=== PATIENT | female | born 1965 | race Caucasian/White ===

== ENCOUNTER 2023-02-26 00:47 | Emergency (ER) | payer OTHER, MEDICAID ==
[~2023-02-26] VITALS: Ht 162.6 cm; Wt 136.1 kg
[2023-02-26 00:52] VITALS: BP_SYST 137
--- NOTE | 2023-02-26 01:31 | NUR ---
Patient to ER bed 02 to gown for evaluation. Side rails up. Report given to HALLE BENAVIDEZ.
--- NOTE | 2023-02-26 01:34 | NUR ---
PT TOOK NORCO AT 2300 ON 02/25. EMS GAVE 4MG OF MORPHINE IM @ 0025.
--- NOTE | 2023-02-26 02:05 | NUR ---
DR WICK AT BEDSIDE EXAMINING PATIENT AWAITING FOR DISPOSITION VSS.
[2023-02-26] MEDS ORDERED: NORMAL SALINE 5 ML DISP.SYRIN IVF SCH (02:15)
[2023-02-26] MEDS ORDERED: PROCHLORPERAZINE EDISYLATE 10 MG/2 ML VIAL IVP ONE (02:15)
[2023-02-26] MEDS ORDERED: fentaNYL CITRATE/PF 100 MCG/2 ML AMP IVP ONE (02:15)
[2023-02-26] MEDS ORDERED: AUG875 PO (05:01)
[2023-02-26] MEDS ORDERED: ACET1TAB93 PO (05:03)
--- NOTE | 2023-02-26 05:30 | NUR ---
LT FOOT AIR SPLINT APPLIED
[2023-02-26 05:51] VITALS: BP_SYST 126
--- NOTE | 2023-02-26 05:55 | NUR ---
Patient given written and verbal discharge instructions and verbalizes understanding. SHERRON NO MD discussed with patient the results and treatment provided. Patient in stable condition. ID arm band removed. IV catheter removed intact and dressing applied, no active bleeding. Rx of given. Patient educated on pain management and to follow up with PMD. Pain Scale 0 . Opportunity for questions provided and answered. Medication side effect fact sheet provided.
[2023-02-26] MEDS ORDERED: DULO60CA42 PO (22:16)
[2023-02-26] MEDS ORDERED: CLOP75TA32 PO (22:16)
[2023-02-26] MEDS ORDERED: CARV6.2554 PO (22:16)
[2023-02-26] MEDS ORDERED: DAPA10TA PO (22:16)
[2023-02-26] MEDS ORDERED: ASPI-1077 PO (22:16)
[2023-02-26] MEDS ORDERED: BACL20TA PO (22:16)
[2023-02-26] MEDS ORDERED: PREG75CA PO (22:16)
[2023-02-26] MEDS ORDERED: METO2.5T6 PO (22:16)
[2023-02-26] MEDS ORDERED: POTA-197 PO (22:16)
[2023-02-26] MEDS ORDERED: APIX2.5T PO (22:16)
[2023-02-26] MEDS ORDERED: FURO-149 PO (22:16)
[2023-02-26] MEDS ORDERED: CILO100T3 PO (22:16)
[2023-02-26] MEDS ORDERED: ALPR0.25 PO (22:16)
== END 2023-02-26 05:55 | disposition home or self-care (01) ==
LOC: SED 00:47
DX: S93.402A Sprain of unspecified ligament of left ankle, initial encounter (principal); L03.116 Cellulitis of left lower limb; E11.9 Type 2 diabetes mellitus without complications; I10 Essential (primary) hypertension; Z79.899 Other long term (current) drug therapy; W05.0XXA Fall from non-moving wheelchair, initial encounter; Y93.89 Activity, other specified; Y92.89 Other specified places as the place of occurrence of the external cause; Y99.8 Other external cause status
CPT/HCPCS: 99284; 96374; 96375; 73600; 73630; J0780; J3010

== ENCOUNTER 2023-02-26 17:45 | Inpatient (IN) | payer OTHER, MEDICAID ==
[~2023-02-26] VITALS: Ht 165.1 cm; Wt 118.4 kg
[~2023-02-26 17:45] MED LIST: ACET1TAB93 PO; AUG875 PO
[2023-02-26 17:50] VITALS: BP_SYST 86
[2023-02-26] MEDS ORDERED: NACL 0.9% 2,000 ML IV ONE (18:45)
[2023-02-26 19:39] LABS: HEMOGLOBIN 10.7 g/dL (12.0-16.0); MEAN CORPUSCULAR HEMOGLOBIN 25 pg (27-31); RED BLOOD CELL COUNT(AUTO) 4.38 MIL/uL (4.2-6.2)
[2023-02-26 19:45] LABS: HEMATOCRIT 33.8 % (36-48); MEAN CORPUSCULAR HGB CONC 32 % (32-36); MEAN CORPUSCULAR VOLUME 77 fL (79.0-98.0); PLATELET COUNT (AUTO) 295 K/uL (130-430); RED CELL DISTRIBUTION WIDTH 21.2 % (9.0-15.0)
[2023-02-26 19:49] LABS: WHITE BLOOD COUNT (AUTO) 21.3 K/uL (4.8-10.8)
[2023-02-26 19:58] LABS: BAND % (MANUAL) 8 % (0-6); LYMPHOCYTES % (MANUAL) 1 % (20-46); MONOCYTES % (MANUAL) 1 % (0-11)
[2023-02-26 20:10] LABS: ALANINE AMINOTRANSFERASE 17 U/L (12-78); ALBUMIN 2.9 g/dL (3.4-4.8); ANION GAP 13 (5-15); ASPARTATE AMINOTRANSFERASE 47 U/L (10-37); CALCIUM 8.2 mg/dL (8.4-11.0); CHLORIDE 95 mmol/L (98-107); CREATININE 1.94 mg/dL (0.55-1.30); GFR AFRICAN AMERICAN 34 mL/min (>90); TOTAL BILIRUBIN 0.7 mg/dL (0.0-1.0); UREA NITROGEN, BLOOD 42 mg/dL (8-21)
[2023-02-26 20:13] LABS: GLUCOSE 433 mg/dL (70-99)
[2023-02-26] MEDS ORDERED: ENOXAPARIN SODIUM 120 MG/0.8 ML SYRINGE SUBCUT ONE (20:30)
[2023-02-26] MEDS ORDERED: ASPIRIN 300 MG/SUPP.RECT SUPP RC ONE ×2 (20:30→20:47)
[2023-02-26] MEDS ORDERED: ONDANSETRON HCL 4 MG/2 ML VIAL IVP ONE (20:45)
[2023-02-26] MEDS ORDERED: NALOXONE HCL 2 MG/2 ML SYR IVP ONE (20:45)
[2023-02-26] MEDS ORDERED: PIPERACILLIN/TAZOBACTAM 3.375 GM/VIAL (ZOSYN) IV ONE (21:11)
[2023-02-26] MEDS ORDERED: PIPERACILLIN/TAZO 3.375 GM in NS 50 ML IV ONE (21:15)
[2023-02-26] MEDS ORDERED: CILO100T3 PO (22:16)
[2023-02-26] MEDS ORDERED: PREG75CA PO (22:16)
[2023-02-26] MEDS ORDERED: ASPI-1077 PO (22:16)
[2023-02-26] MEDS ORDERED: METO2.5T6 PO (22:16)
[2023-02-26] MEDS ORDERED: CARV6.2554 PO (22:16)
[2023-02-26] MEDS ORDERED: ALPR0.25 PO (22:16)
[2023-02-26] MEDS ORDERED: POTA-197 PO (22:16)
[2023-02-26] MEDS ORDERED: APIX2.5T PO (22:16)
[2023-02-26] MEDS ORDERED: DULO60CA42 PO (22:16)
[2023-02-26] MEDS ORDERED: BACL20TA PO (22:16)
[2023-02-26] MEDS ORDERED: FURO-149 PO (22:16)
[2023-02-26] MEDS ORDERED: DAPA10TA PO (22:16)
[2023-02-26] MEDS ORDERED: CLOP75TA32 PO (22:16)
[2023-02-26 23:00] VITALS: BP_SYST 104; BP_SYST 98
[2023-02-26] MEDS ORDERED: ACETAMINOPHEN/CODEINE 300 MG-30 MG TABLET PO PRN (23:45)
[2023-02-26] MEDS ORDERED: BACLOFEN 10 MG TABLET PO PRN (23:45)
[2023-02-26] MEDS ORDERED: NALOXONE HCL 0.4 MG/ML AMP (NARCAN) IVP PRN (23:45)
[2023-02-27] VITALS (14 sets, daily range): BP systolic 97–122
[2023-02-27] MEDS ORDERED: PIPERACILLIN/TAZO 3.375/DEX-IS 50 ML IV SCH ×2 (05:00→06:45)
[2023-02-27] MEDS ORDERED: *HEPARIN PER PHARMACY XX PRN (05:15)
[2023-02-27] MEDS ORDERED: COMMUNICATION ORDER XX ONE (05:15)
[2023-02-27] MEDS ORDERED: HEPARIN SODIUM,PORCINE 3000 UNITS/0.6 ML BOLUS IVP PRN (05:30)
[2023-02-27] MEDS ORDERED: NACL 0.9% 1,000 ML IV SCH (05:30)
[2023-02-27 05:53] LABS: BASOPHILS % (AUTO) 0.2 % (0.0-2.0); HEMATOCRIT 33.8 % (36-48); HEMOGLOBIN 10.6 g/dL (12.0-16.0); LYMPHOCYTES # (AUTO) 1.1 K/uL (1.0-5.5); LYMPHOCYTES % (AUTO) 5.8 % (20.5-51.5); MEAN CORPUSCULAR HEMOGLOBIN 25 pg (27-31); MEAN CORPUSCULAR HGB CONC 31 % (32-36); MEAN CORPUSCULAR VOLUME 78 fL (79.0-98.0); MONOCYTES # (AUTO) 0.6 K/uL (0.0-1.0); NEUTROPHILS # (AUTO) 17.1 K/uL (1.8-7.7); PLATELET COUNT (AUTO) 291 K/uL (130-430); RED BLOOD CELL COUNT(AUTO) 4.32 MIL/uL (4.2-6.2); RED CELL DISTRIBUTION WIDTH 21.4 % (9.0-15.0); WHITE BLOOD COUNT (AUTO) 18.8 K/uL (4.8-10.8)
[2023-02-27 06:07] LABS: ANION GAP 14 (5-15); CALCIUM 8.2 mg/dL (8.4-11.0); CHLORIDE 99 mmol/L (98-107); CREATININE 1.69 mg/dL (0.55-1.30); GFR AFRICAN AMERICAN 40 mL/min (>90); UREA NITROGEN, BLOOD 41 mg/dL (8-21)
[2023-02-27 06:08] LABS: THYROID STIMULATING HORMONE 0.68 uIu/mL (0.34-4.82)
[2023-02-27 07:12] LABS: GLUCOSE 410 mg/dL (70-99)
[2023-02-27] MEDS: CLOPIDOGREL BISULFATE 75 MG TABLET PO SCH (08:30)
[2023-02-27] MEDS: FUROSEMIDE 40 MG TABLET PO SCH ×2 (08:31→21:20)
[2023-02-27] MEDS: CARVEDILOL 6.25 MG TABLET (COREG) PO SCH ×2 (08:31→21:16)
[2023-02-27] MEDS: DULoxetine HCL 30 MG CAPSULE.DR (CYMBALTA) PO SCH ×2 (08:32→21:20)
[2023-02-27] MEDS: PREGABALIN 75 MG CAPSULE (LYRICA) PO SCH ×2 (08:32→21:20)
[2023-02-27] MEDS: POTASSIUM CHLORIDE 20 MEQ TAB.PRT.SR PO SCH ×2 (08:32→21:15)
[2023-02-27] MEDS: ASPIRIN 81 MG TAB.CHEW PO SCH (08:32)
[2023-02-27] MEDS ORDERED: ALPRAZolam 0.25 MG TABLET PO SCH (09:00)
[2023-02-27] MEDS ORDERED: NON-FORMULARY MEDICATION (Dapagliflozin Propanediol (Farxiga) 10 MG) PO SCH (09:00)
[2023-02-27] MEDS ORDERED: HEPARIN SODIUM,PORCINE 5,000 UNITS/ML VIAL IV ONE (09:30)
[2023-02-27] MEDS: HEPARIN 25,000 UNITS in 250 ML PREMIX IV PRN (10:30)
[2023-02-27] MEDS ORDERED: AMIODARONE HCL 150 MG in D5W 100 ML IV ONE (11:00)
[2023-02-27] MEDS: AMIODARONE HCL 450 MG in D5W 241 ML IV SCH ×2 (11:10→21:40)
[2023-02-27] MEDS: PIPERACILLIN/TAZO 3.375/DEX-IS 50 ML IV SCH ×2 (11:27→17:32)
[2023-02-27] MEDS ORDERED: OMEPRAZOLE Non-Formulary 20 MG CAPSULE.DR PO SCH (12:00)
[2023-02-27] MEDS: INSULIN REGULAR, HUMAN 100 UNITS/ML, 3 ML VIAL (humuLIN R) SUBCUT PRN ×2 (12:04→17:48)
[2023-02-27] MEDS ORDERED: PANTOPRAZOLE SODIUM 40 MG TAB PO ONE (12:30)
[2023-02-27] MEDS ORDERED: ALPRAZolam 0.25 MG TABLET PO ONE (13:00)
[2023-02-27] MEDS ORDERED: ONDANSETRON HCL 4 MG/2 ML VIAL IVP PRN (13:15)
[2023-02-27] MEDS ORDERED: ALTEPLASE 2 MG VIAL MC ONE (16:30)
[2023-02-27] MEDS ORDERED: INSULIN NPH 100 UNITS/ML 10 ML VIAL SUBCUT ONE (18:30)
[2023-02-27 18:42] LABS: BILIRUBIN,URINE NEGATIVE (NEGATIVE); BLOOD, URINE 3+ (NEGATIVE); COLOR,URINE YELLOW (YELLOW); GLUCOSE,URINE 3+ (NEGATIVE); KETONES,URINE NEGATIVE (NEGATIVE); LEUKOCYTE ESTERASE ,URINE NEGATIVE (NEGATIVE); NITRITE, URINE NEGATIVE (NEGATIVE); PROTEIN URINE 2+ (NEGATIVE)
[2023-02-27 18:49] LABS: CLARITY/URINE HAZY (CLEAR)
[2023-02-27 18:58] LABS: BACTERIA,URINE FEW /HPF (None Seen); RBC,URINE 20-50 /HPF (0-3); WBC,URINE 0-3 /HPF (0-3)
[2023-02-27] MEDS ORDERED: CILOSTAZOL 50 MG TABLET (PLETAL) PO SCH (21:00)
[2023-02-27] MEDS ORDERED: INSULIN Lispro 100 UNITS/ML, 3 ML VIAL (humaLOG) SUBCUT ONE (21:00)
[2023-02-27] MEDS: ALPRAZolam 0.25 MG TABLET PO SCH (21:16)
[2023-02-27] MEDS: INSULIN GLARGINE 100 UNITS/ML, 10 ML VIAL SUBCUT SCH (21:30)
[2023-02-28] VITALS (25 sets, daily range): BP systolic 64–149
[2023-02-28] MEDS: HEPARIN SODIUM,PORCINE 2000 UNITS/0.4 ML BOLUS IVP PRN ×2 (00:08→17:37)
[2023-02-28] MEDS: PIPERACILLIN/TAZO 3.375/DEX-IS 50 ML IV SCH ×7 (00:15→23:04)
[2023-02-28] MEDS: INSULIN LISPRO SLIDING SCALE 100 UNITS/ML, 3 ML VIAL (humaLOG) SUBCUT PRN ×6 (00:44→23:50)
[2023-02-28] MEDS: DULoxetine HCL 30 MG CAPSULE.DR (CYMBALTA) PO SCH ×2 (08:42→20:41)
[2023-02-28] MEDS: FUROSEMIDE 40 MG TABLET PO SCH ×2 (08:43→20:42)
[2023-02-28] MEDS: metOLazone 2.5 MG TABLET PO SCH ×2 (08:43→09:00)
[2023-02-28] MEDS: PREGABALIN 75 MG CAPSULE (LYRICA) PO SCH ×2 (08:44→20:42)
[2023-02-28] MEDS: ALPRAZolam 0.25 MG TABLET PO SCH ×2 (08:44→20:42)
[2023-02-28] MEDS: PANTOPRAZOLE SODIUM 40 MG TAB PO SCH (08:44)
[2023-02-28] MEDS: ASPIRIN 81 MG TAB.CHEW PO SCH (08:45)
[2023-02-28] MEDS: CARVEDILOL 6.25 MG TABLET (COREG) PO SCH ×2 (08:45→20:41)
[2023-02-28] MEDS: POTASSIUM CHLORIDE 20 MEQ TAB.PRT.SR PO SCH ×2 (08:45→20:41)
[2023-02-28] MEDS: CLOPIDOGREL BISULFATE 75 MG TABLET PO SCH (08:45)
[2023-02-28] MEDS ORDERED: EMPAGLIFLOZIN 10 MG TABLET PO SCH (09:00)
[2023-02-28] MEDS: HEPARIN 25,000 UNITS in 250 ML PREMIX IV PRN ×3 (09:21→22:38)
[2023-02-28] MEDS: INSULIN GLARGINE 100 UNITS/ML, 10 ML VIAL SUBCUT SCH ×2 (10:29→20:42)
[2023-02-28 10:45] LABS: ALBUMIN 2.7 g/dL (3.4-4.8); BASOPHILS # (AUTO) 0.1 K/uL (0.0-0.2); BASOPHILS % (AUTO) 0.6 % (0.0-2.0); CALCIUM 7.8 mg/dL (8.4-11.0); CREATININE 2.39 mg/dL (0.55-1.30); EOSINOPHILS # (AUTO) 0.1 K/uL (0.0-0.4); EOSINOPHILS % (AUTO) 0.7 % (0.0-4.0); HEMATOCRIT 33.8 % (36-48); HEMOGLOBIN 10.4 g/dL (12.0-16.0); LYMPHOCYTES # (AUTO) 2.1 K/uL (1.0-5.5); LYMPHOCYTES % (AUTO) 21.5 % (20.5-51.5); MEAN CORPUSCULAR HEMOGLOBIN 25 pg (27-31); MEAN CORPUSCULAR HGB CONC 31 % (32-36); MEAN CORPUSCULAR VOLUME 80 fL (79.0-98.0); MONOCYTES # (AUTO) 0.7 K/uL (0.0-1.0); MONOCYTES % (AUTO) 7.5 % (1.7-9.3); NEUTROPHILS # (AUTO) 6.9 K/uL (1.8-7.7); NEUTROPHILS % (AUTO) 69.7 % (40.0-70.0); PLATELET COUNT (AUTO) 262 K/uL (130-430); RED BLOOD CELL COUNT(AUTO) 4.24 MIL/uL (4.2-6.2); TOTAL BILIRUBIN 0.5 mg/dL (0.0-1.0); WHITE BLOOD COUNT (AUTO) 9.9 K/uL (4.8-10.8)
[2023-02-28] MEDS ORDERED: NOREPINEPHRINE BITARTRATE 4 MG in NS 246 ML IV PRN (11:00)
[2023-02-28] MEDS ORDERED: AMIODARONE HCL 200 MG TABLET PO ONE (11:30)
[2023-02-28] MEDS ORDERED: BUMEX 1 MG/4 ML VIAL IVP ONE (20:30)
[2023-02-28] MEDS: AMIODARONE HCL 200 MG TABLET PO SCH (20:41)
[2023-03-01] VITALS (16 sets, daily range): BP systolic 98–145
[2023-03-01 00:11] LABS: ALBUMIN 2.7 g/dL (3.4-4.8); CALCIUM 7.4 mg/dL (8.4-11.0); CREATININE 2.72 mg/dL (0.55-1.30); TOTAL BILIRUBIN 0.7 mg/dL (0.0-1.0)
[2023-03-01] MEDS: INSULIN LISPRO SLIDING SCALE 100 UNITS/ML, 3 ML VIAL (humaLOG) SUBCUT PRN ×5 (04:24→21:43)
[2023-03-01] MEDS: PIPERACILLIN/TAZO 3.375/DEX-IS 50 ML IV SCH ×3 (05:58→17:41)
[2023-03-01 07:37] LABS: BASOPHILS # (AUTO) 0.1 K/uL (0.0-0.2); BASOPHILS % (AUTO) 0.7 % (0.0-2.0); EOSINOPHILS # (AUTO) 0.1 K/uL (0.0-0.4); EOSINOPHILS % (AUTO) 1.4 % (0.0-4.0); HEMATOCRIT 32.4 % (36-48); HEMOGLOBIN 10.3 g/dL (12.0-16.0); LYMPHOCYTES # (AUTO) 1.4 K/uL (1.0-5.5); LYMPHOCYTES % (AUTO) 14.6 % (20.5-51.5); MEAN CORPUSCULAR HEMOGLOBIN 25 pg (27-31); MEAN CORPUSCULAR HGB CONC 32 % (32-36); MEAN CORPUSCULAR VOLUME 79 fL (79.0-98.0); MONOCYTES # (AUTO) 0.6 K/uL (0.0-1.0); MONOCYTES % (AUTO) 6.2 % (1.7-9.3); NEUTROPHILS # (AUTO) 7.2 K/uL (1.8-7.7); NEUTROPHILS % (AUTO) 77.1 % (40.0-70.0); PLATELET COUNT (AUTO) 246 K/uL (130-430); RED BLOOD CELL COUNT(AUTO) 4.08 MIL/uL (4.2-6.2); RED CELL DISTRIBUTION WIDTH 21.4 % (9.0-15.0); WHITE BLOOD COUNT (AUTO) 9.3 K/uL (4.8-10.8)
[2023-03-01 07:56] LABS: CALCIUM 7.7 mg/dL (8.4-11.0); CREATININE 2.51 mg/dL (0.55-1.30); PHOSPHORUS 3.8 mg/dL (2.7-4.5)
[2023-03-01] MEDS: INSULIN GLARGINE 100 UNITS/ML, 10 ML VIAL SUBCUT SCH ×2 (08:00→21:43)
[2023-03-01 08:03] LABS: ERYTHROCYTE SEDIMENTATION RATE > 130 MM/HR (0-20)
[2023-03-01] MEDS: ALPRAZolam 0.25 MG TABLET PO SCH ×2 (08:56→21:35)
[2023-03-01] MEDS: PANTOPRAZOLE SODIUM 40 MG TAB PO SCH (08:56)
[2023-03-01] MEDS: AMIODARONE HCL 200 MG TABLET PO SCH ×2 (08:56→21:34)
[2023-03-01] MEDS: CARVEDILOL 6.25 MG TABLET (COREG) PO SCH ×2 (08:57→21:35)
[2023-03-01] MEDS: FUROSEMIDE 40 MG TABLET PO SCH ×2 (08:57→21:36)
[2023-03-01] MEDS: PREGABALIN 75 MG CAPSULE (LYRICA) PO SCH ×2 (08:57→21:35)
[2023-03-01] MEDS: DULoxetine HCL 30 MG CAPSULE.DR (CYMBALTA) PO SCH ×2 (08:58→21:36)
[2023-03-01] MEDS: ASPIRIN 81 MG TAB.CHEW PO SCH (08:58)
[2023-03-01] MEDS: CLOPIDOGREL BISULFATE 75 MG TABLET PO SCH (08:58)
[2023-03-01] MEDS: POTASSIUM CHLORIDE 20 MEQ TAB.PRT.SR PO SCH ×3 (09:00→21:35)
[2023-03-01] MEDS: HEPARIN 25,000 UNITS in 250 ML PREMIX IV PRN (12:16)
[2023-03-02 00:11] VITALS: BP_SYST 114
[2023-03-02] MEDS: PIPERACILLIN/TAZO 3.375/DEX-IS 50 ML IV SCH ×5 (05:42→23:43)
[2023-03-02] MEDS: INSULIN LISPRO SLIDING SCALE 100 UNITS/ML, 3 ML VIAL (humaLOG) SUBCUT PRN ×4 (06:21→20:38)
[2023-03-02] MEDS: INSULIN Lispro 100 UNITS/ML, 3 ML VIAL (humaLOG) SUBCUT SCH ×3 (06:21→17:02)
[2023-03-02 07:10] LABS: BASOPHILS # (AUTO) 0.1 K/uL (0.0-0.2); BASOPHILS % (AUTO) 0.6 % (0.0-2.0); EOSINOPHILS # (AUTO) 0.2 K/uL (0.0-0.4); EOSINOPHILS % (AUTO) 1.9 % (0.0-4.0); HEMATOCRIT 31.8 % (36-48); HEMOGLOBIN 9.9 g/dL (12.0-16.0); LYMPHOCYTES # (AUTO) 1.3 K/uL (1.0-5.5); LYMPHOCYTES % (AUTO) 13.7 % (20.5-51.5); MEAN CORPUSCULAR HEMOGLOBIN 25 pg (27-31); MEAN CORPUSCULAR HGB CONC 31 % (32-36); MEAN CORPUSCULAR VOLUME 80 fL (79.0-98.0); MONOCYTES # (AUTO) 0.8 K/uL (0.0-1.0); MONOCYTES % (AUTO) 8.5 % (1.7-9.3); NEUTROPHILS % (AUTO) 75.3 % (40.0-70.0); PLATELET COUNT (AUTO) 222 K/uL (130-430); RED CELL DISTRIBUTION WIDTH 21.5 % (9.0-15.0); WHITE BLOOD COUNT (AUTO) 9.3 K/uL (4.8-10.8)
[2023-03-02 07:40] LABS: C-REACTIVE PROTEIN QUANT 10.6 mg/dL (0-0.5); CALCIUM 7.6 mg/dL (8.4-11.0); CREATININE 1.9 mg/dL (0.55-1.30); PHOSPHORUS 3.4 mg/dL (2.7-4.5)
[2023-03-02 08:00] VITALS: BP_SYST 126
[2023-03-02 08:08] LABS: ERYTHROCYTE SEDIMENTATION RATE 115 MM/HR (0-20)
[2023-03-02] MEDS: PREGABALIN 75 MG CAPSULE (LYRICA) PO SCH ×2 (08:50→20:34)
[2023-03-02] MEDS: PANTOPRAZOLE SODIUM 40 MG TAB PO SCH (08:50)
[2023-03-02] MEDS: ASPIRIN 81 MG TAB.CHEW PO SCH (08:50)
[2023-03-02] MEDS: FUROSEMIDE 40 MG TABLET PO SCH ×2 (08:50→20:34)
[2023-03-02] MEDS: DULoxetine HCL 30 MG CAPSULE.DR (CYMBALTA) PO SCH ×2 (08:50→20:32)
[2023-03-02] MEDS: metOLazone 2.5 MG TABLET PO SCH (08:51)
[2023-03-02] MEDS: CLOPIDOGREL BISULFATE 75 MG TABLET PO SCH (08:51)
[2023-03-02] MEDS: POTASSIUM CHLORIDE 20 MEQ TAB.PRT.SR PO SCH ×2 (08:51→20:32)
[2023-03-02] MEDS: AMIODARONE HCL 200 MG TABLET PO SCH ×2 (08:52→20:33)
[2023-03-02] MEDS: CARVEDILOL 6.25 MG TABLET (COREG) PO SCH ×2 (08:52→20:34)
[2023-03-02] MEDS: ALPRAZolam 0.25 MG TABLET PO SCH ×2 (08:53→20:32)
[2023-03-02 09:12] LABS: INR 1.1 (0.8-1.2); PROTHROMBIN TIME 10.9 SECS (9.5-12.5)
[2023-03-02] MEDS: INSULIN GLARGINE 100 UNITS/ML, 10 ML VIAL SUBCUT SCH ×2 (10:33→20:37)
[2023-03-02 11:25] VITALS: BP_SYST 120
[2023-03-02 15:25] VITALS: BP_SYST 117
[2023-03-02 20:00] VITALS: BP_SYST 126
[2023-03-03 01:16] VITALS: BP_SYST 132
[2023-03-03] MEDS: PIPERACILLIN/TAZO 3.375/DEX-IS 50 ML IV SCH (05:01)
[2023-03-03 05:24] LABS: BASOPHILS % (AUTO) 0.3 % (0.0-2.0); EOSINOPHILS # (AUTO) 0.2 K/uL (0.0-0.4); EOSINOPHILS % (AUTO) 1.7 % (0.0-4.0); HEMATOCRIT 31.3 % (36-48); HEMOGLOBIN 9.8 g/dL (12.0-16.0); LYMPHOCYTES # (AUTO) 1.8 K/uL (1.0-5.5); LYMPHOCYTES % (AUTO) 15.8 % (20.5-51.5); MEAN CORPUSCULAR HEMOGLOBIN 25 pg (27-31); MEAN CORPUSCULAR HGB CONC 31 % (32-36); MEAN CORPUSCULAR VOLUME 79 fL (79.0-98.0); MONOCYTES # (AUTO) 1.1 K/uL (0.0-1.0); MONOCYTES % (AUTO) 9.9 % (1.7-9.3); NEUTROPHILS # (AUTO) 8.2 K/uL (1.8-7.7); NEUTROPHILS % (AUTO) 72.3 % (40.0-70.0); PLATELET COUNT (AUTO) 233 K/uL (130-430); RED BLOOD CELL COUNT(AUTO) 3.97 MIL/uL (4.2-6.2); RED CELL DISTRIBUTION WIDTH 21.6 % (9.0-15.0); WHITE BLOOD COUNT (AUTO) 11.3 K/uL (4.8-10.8)
[2023-03-03 05:49] LABS: C-REACTIVE PROTEIN QUANT 8.1 mg/dL (0-0.5); CREATININE 1.56 mg/dL (0.55-1.30); PHOSPHORUS 2.8 mg/dL (2.7-4.5)
[2023-03-03] MEDS: INSULIN Lispro 100 UNITS/ML, 3 ML VIAL (humaLOG) SUBCUT SCH ×3 (06:30→17:00)
[2023-03-03 08:00] VITALS: BP_SYST 120
[2023-03-03 08:07] LABS: ERYTHROCYTE SEDIMENTATION RATE > 130 MM/HR (0-20)
[2023-03-03] MEDS: ASPIRIN 81 MG TAB.CHEW PO SCH (08:44)
[2023-03-03] MEDS: DULoxetine HCL 30 MG CAPSULE.DR (CYMBALTA) PO SCH ×2 (08:45→21:21)
[2023-03-03] MEDS: AMIODARONE HCL 200 MG TABLET PO SCH ×2 (08:46→21:19)
[2023-03-03] MEDS: CLOPIDOGREL BISULFATE 75 MG TABLET PO SCH (08:46)
[2023-03-03] MEDS: PANTOPRAZOLE SODIUM 40 MG TAB PO SCH (08:47)
[2023-03-03] MEDS: FUROSEMIDE 40 MG TABLET PO SCH ×2 (08:48→21:22)
[2023-03-03] MEDS: PREGABALIN 75 MG CAPSULE (LYRICA) PO SCH ×2 (08:49→21:22)
[2023-03-03] MEDS: POTASSIUM CHLORIDE 20 MEQ TAB.PRT.SR PO SCH ×2 (08:49→21:21)
[2023-03-03] MEDS: CARVEDILOL 6.25 MG TABLET (COREG) PO SCH ×2 (08:49→21:21)
[2023-03-03] MEDS: ALPRAZolam 0.25 MG TABLET PO SCH ×2 (08:50→21:22)
[2023-03-03] MEDS: INSULIN GLARGINE 100 UNITS/ML, 10 ML VIAL SUBCUT SCH ×2 (08:52→21:23)
[2023-03-03] MEDS ORDERED: OXYCODONE/ACETAMINOPHEN 5-325 TABLET PO PRN (10:00)
[2023-03-03] MEDS ORDERED: NALOXONE HCL 0.4 MG/ML AMP (NARCAN) IVP PRN (10:00)
[2023-03-03] MEDS ORDERED: ACETAMINOPHEN 325 MG TABLET PO PRN (10:00)
[2023-03-03] MEDS: HYDROcodone/ACETAMIN 5-325 MG TAB (NORCO/ VICODIN) PO PRN ×2 (10:36→21:34)
[2023-03-03] MEDS: CEFEPIME 2 GM in D5W 100 ML IV SCH (11:21)
[2023-03-03 11:32] VITALS: BP_SYST 127
[2023-03-03] MEDS: INSULIN LISPRO SLIDING SCALE 100 UNITS/ML, 3 ML VIAL (humaLOG) SUBCUT PRN (12:16)
[2023-03-03] MEDS: FLUCONAZOLE 100 mg/ NS 50 ML IV SCH (12:29)
[2023-03-03 15:37] VITALS: BP_SYST 102
[2023-03-03] MEDS ORDERED: BALSAM PERU/CASTOR OIL 56.7 GM OINT...G. TP ONE (17:00)
[2023-03-03 20:00] VITALS: BP_SYST 157
[2023-03-04 00:46] VITALS: BP_SYST 108
[2023-03-04 05:48] LABS: BASOPHILS % (AUTO) 0.4 % (0.0-2.0); EOSINOPHILS # (AUTO) 0.2 K/uL (0.0-0.4); EOSINOPHILS % (AUTO) 1.5 % (0.0-4.0); HEMOGLOBIN 9.8 g/dL (12.0-16.0); LYMPHOCYTES # (AUTO) 1.6 K/uL (1.0-5.5); LYMPHOCYTES % (AUTO) 14.7 % (20.5-51.5); MEAN CORPUSCULAR HEMOGLOBIN 25 pg (27-31); MEAN CORPUSCULAR HGB CONC 32 % (32-36); MEAN CORPUSCULAR VOLUME 79 fL (79.0-98.0); MONOCYTES # (AUTO) 1.2 K/uL (0.0-1.0); MONOCYTES % (AUTO) 11.3 % (1.7-9.3); NEUTROPHILS # (AUTO) 7.9 K/uL (1.8-7.7); NEUTROPHILS % (AUTO) 72.1 % (40.0-70.0); PLATELET COUNT (AUTO) 267 K/uL (130-430); RED BLOOD CELL COUNT(AUTO) 3.91 MIL/uL (4.2-6.2); RED CELL DISTRIBUTION WIDTH 22.9 % (9.0-15.0); WHITE BLOOD COUNT (AUTO) 10.9 K/uL (4.8-10.8)
[2023-03-04] MEDS: INSULIN Lispro 100 UNITS/ML, 3 ML VIAL (humaLOG) SUBCUT SCH ×3 (06:10→17:49)
[2023-03-04 06:33] LABS: ALBUMIN 2.9 g/dL (3.4-4.8); C-REACTIVE PROTEIN QUANT 8.3 mg/dL (0-0.5); CALCIUM 8.3 mg/dL (8.4-11.0); CREATININE 1.71 mg/dL (0.55-1.30); PHOSPHORUS 3.7 mg/dL (2.7-4.5); TOTAL BILIRUBIN 0.7 mg/dL (0.0-1.0)
[2023-03-04 08:00] VITALS: BP_SYST 133
[2023-03-04 08:06] LABS: ERYTHROCYTE SEDIMENTATION RATE > 130 MM/HR (0-20)
[2023-03-04] MEDS: BALSAM PERU/CASTOR OIL 56.7 GM OINT...G. TP SCH (08:47)
[2023-03-04] MEDS: ASPIRIN 81 MG TAB.CHEW PO SCH (08:47)
[2023-03-04] MEDS: PREGABALIN 75 MG CAPSULE (LYRICA) PO SCH ×2 (08:48→20:13)
[2023-03-04] MEDS: metOLazone 2.5 MG TABLET PO SCH (08:48)
[2023-03-04] MEDS: FUROSEMIDE 40 MG TABLET PO SCH ×2 (08:49→20:13)
[2023-03-04] MEDS: CLOPIDOGREL BISULFATE 75 MG TABLET PO SCH (08:49)
[2023-03-04] MEDS: AMIODARONE HCL 200 MG TABLET PO SCH ×2 (08:49→20:14)
[2023-03-04] MEDS: ALPRAZolam 0.25 MG TABLET PO SCH ×2 (08:49→20:14)
[2023-03-04] MEDS: PANTOPRAZOLE SODIUM 40 MG TAB PO SCH (08:50)
[2023-03-04] MEDS: DULoxetine HCL 30 MG CAPSULE.DR (CYMBALTA) PO SCH ×2 (08:50→20:13)
[2023-03-04] MEDS: POTASSIUM CHLORIDE 20 MEQ TAB.PRT.SR PO SCH ×2 (08:50→20:15)
[2023-03-04] MEDS: HYDROcodone/ACETAMIN 5-325 MG TAB (NORCO/ VICODIN) PO PRN (09:35)
[2023-03-04] MEDS: INSULIN GLARGINE 100 UNITS/ML, 10 ML VIAL SUBCUT SCH ×2 (09:36→20:15)
[2023-03-04] MEDS: CARVEDILOL 6.25 MG TABLET (COREG) PO SCH ×2 (10:26→20:14)
[2023-03-04] MEDS: CEFEPIME 2 GM in D5W 100 ML IV SCH (10:27)
[2023-03-04 11:31] VITALS: BP_SYST 126
[2023-03-04] MEDS: INSULIN LISPRO SLIDING SCALE 100 UNITS/ML, 3 ML VIAL (humaLOG) SUBCUT PRN (12:00)
[2023-03-04] MEDS: FLUCONAZOLE 100 mg/ NS 50 ML IV SCH (12:01)
[2023-03-04 15:07] VITALS: BP_SYST 126
[2023-03-04 15:17] VITALS: BP_SYST 114
[2023-03-04 20:00] VITALS: BP_SYST 122
[2023-03-05] VITALS: BP_SYST 128
[2023-03-05 07:35] VITALS: BP_SYST 119
[2023-03-05 07:44] LABS: BASOPHILS % (AUTO) 0.4 % (0.0-2.0); EOSINOPHILS # (AUTO) 0.2 K/uL (0.0-0.4); HEMATOCRIT 34.3 % (36-48); HEMOGLOBIN 10.5 g/dL (12.0-16.0); LYMPHOCYTES % (AUTO) 24.3 % (20.5-51.5); MEAN CORPUSCULAR HEMOGLOBIN 25 pg (27-31); MEAN CORPUSCULAR HGB CONC 31 % (32-36); MEAN CORPUSCULAR VOLUME 80 fL (79.0-98.0); MONOCYTES % (AUTO) 11.5 % (1.7-9.3); NEUTROPHILS # (AUTO) 5.2 K/uL (1.8-7.7); NEUTROPHILS % (AUTO) 61.8 % (40.0-70.0); PLATELET COUNT (AUTO) 231 K/uL (130-430); RED BLOOD CELL COUNT(AUTO) 4.29 MIL/uL (4.2-6.2); RED CELL DISTRIBUTION WIDTH 23.1 % (9.0-15.0); WHITE BLOOD COUNT (AUTO) 8.4 K/uL (4.8-10.8)
[2023-03-05 08:03] LABS: ERYTHROCYTE SEDIMENTATION RATE > 130 MM/HR (0-20)
[2023-03-05 08:05] LABS: C-REACTIVE PROTEIN QUANT 5.2 mg/dL (0-0.5); CALCIUM 8.4 mg/dL (8.4-11.0); CREATININE 1.56 mg/dL (0.55-1.30); PHOSPHORUS 4.1 mg/dL (2.7-4.5)
[2023-03-05] MEDS: INSULIN Lispro 100 UNITS/ML, 3 ML VIAL (humaLOG) SUBCUT SCH ×3 (08:14→17:40)
[2023-03-05] MEDS: ALPRAZolam 0.25 MG TABLET PO SCH (09:00)
[2023-03-05] MEDS: PREGABALIN 75 MG CAPSULE (LYRICA) PO SCH (09:01)
[2023-03-05] MEDS: DULoxetine HCL 30 MG CAPSULE.DR (CYMBALTA) PO SCH (09:01)
[2023-03-05] MEDS: POTASSIUM CHLORIDE 20 MEQ TAB.PRT.SR PO SCH (09:01)
[2023-03-05] MEDS: CLOPIDOGREL BISULFATE 75 MG TABLET PO SCH (09:01)
[2023-03-05] MEDS: ASPIRIN 81 MG TAB.CHEW PO SCH (09:01)
[2023-03-05] MEDS: AMIODARONE HCL 200 MG TABLET PO SCH (09:02)
[2023-03-05] MEDS: FUROSEMIDE 40 MG TABLET PO SCH (09:02)
[2023-03-05] MEDS: PANTOPRAZOLE SODIUM 40 MG TAB PO SCH (09:03)
[2023-03-05] MEDS: CARVEDILOL 6.25 MG TABLET (COREG) PO SCH (09:03)
[2023-03-05] MEDS: INSULIN GLARGINE 100 UNITS/ML, 10 ML VIAL SUBCUT SCH (09:41)
[2023-03-05] MEDS: BALSAM PERU/CASTOR OIL 56.7 GM OINT...G. TP SCH (09:42)
[2023-03-05] MEDS: CEFEPIME 2 GM in D5W 100 ML IV SCH (10:28)
[2023-03-05] MEDS ORDERED: INSU100V9 SUBCUT (10:47)
[2023-03-05] MEDS ORDERED: LEVO250T73 PO (10:47)
[2023-03-05] MEDS ORDERED: INSU100V SUBCUT (10:47)
[2023-03-05] MEDS ORDERED: PRO40 PO (10:47)
[2023-03-05] MEDS ORDERED: PERC10 PO (10:47)
[2023-03-05] MEDS ORDERED: POTA-197 PO (10:47)
[2023-03-05] MEDS: FLUCONAZOLE 100 mg/ NS 50 ML IV SCH (11:34)
[2023-03-05 12:00] VITALS: BP_SYST 114
[2023-03-05] MEDS: INSULIN LISPRO SLIDING SCALE 100 UNITS/ML, 3 ML VIAL (humaLOG) SUBCUT PRN (12:13)
[2023-03-05 16:00] VITALS: BP_SYST 120
[2023-03-05 20:13] VITALS: BP_SYST 119
[2023-03-05] MEDS ORDERED: INSULIN GLARGINE 100 UNITS/ML, 10 ML VIAL SUBCUT SCH (21:00)
[2023-03-06] MEDS ORDERED: CHOLECALCIFEROL (VITAMIN D3) 2,000 UNIT TABLET PO SCH (09:00)
== END 2023-03-05 20:55 | disposition home health service (06) | DRG 871 ==
LOC: SED 17:45 → SIC 21:28 → STU 03-01 14:30
PROVIDERS: ADMIT Preventive Medicine Preventive Medicine/Occupational Environmental Medicine; ATTEND Preventive Medicine Preventive Medicine/Occupational Environmental Medicine
PROC: 5A09357 Assistance with Respiratory Ventilation, Less than 24 Consecutive Hours, Continuous Positive Airway Pressure (ICD-10-PCS; principal; 2023-02-27)
DX: A41.9 Sepsis, unspecified organism (principal); I21.4 Non-ST elevation (NSTEMI) myocardial infarction; J96.00 Acute respiratory failure, unspecified whether with hypoxia or hypercapnia; J18.9 Pneumonia, unspecified organism; R65.21 Severe sepsis with septic shock; N17.9 Acute kidney failure, unspecified; J44.0 Chronic obstructive pulmonary disease with (acute) lower respiratory infection; N39.0 Urinary tract infection, site not specified; E66.2 Morbid (severe) obesity with alveolar hypoventilation; Z68.41 Body mass index [BMI] 40.0-44.9, adult; E44.0 Moderate protein-calorie malnutrition; E87.20 Acidosis, unspecified; I25.10 Atherosclerotic heart disease of native coronary artery without angina pectoris; E78.5 Hyperlipidemia, unspecified; E11.42 Type 2 diabetes mellitus with diabetic polyneuropathy; M79.7 Fibromyalgia; F41.9 Anxiety disorder, unspecified; F32.A Depression, unspecified; Z20.822 Contact with and (suspected) exposure to COVID-19; D64.9 Anemia, unspecified; E11.40 Type 2 diabetes mellitus with diabetic neuropathy, unspecified; E83.41 Hypermagnesemia; E83.51 Hypocalcemia; E88.09 Other disorders of plasma-protein metabolism, not elsewhere classified; I12.9 Hypertensive chronic kidney disease with stage 1 through stage 4 chronic kidney disease, or unspecified chronic kidney disease; E11.22 Type 2 diabetes mellitus with diabetic chronic kidney disease; N18.9 Chronic kidney disease, unspecified; E87.6 Hypokalemia; E11.649 Type 2 diabetes mellitus with hypoglycemia without coma; R74.01 Elevation of levels of liver transaminase levels; Z88.8 Allergy status to other drugs, medicaments and biological substances; Z79.899 Other long term (current) drug therapy; Z79.82 Long term (current) use of aspirin; Z79.01 Long term (current) use of anticoagulants; Z95.1 Presence of aortocoronary bypass graft; Z87.891 Personal history of nicotine dependence; Z79.84 Long term (current) use of oral hypoglycemic drugs; Z79.4 Long term (current) use of insulin; Z91.148 Patient's other noncompliance with medication regimen for other reason
CPT/HCPCS: 36415; 36600; 71045; 73521; 80048; 80053; 80061; 81000; 82306; 82570; 82803-TC; 82962; 83037; 83605; 83735; 83880; 84100; 84302; 84443; 84484; 85007; 85025; 85027; 85610-TC; 85651-TC; 85730-TC; 86140; 87040; 87081; 87086; 93005; 93306; 94660; 94760; 96361; 96365; 96372; 96374; 96375; 97110-GP; 97530-GP; 99291; C1751; G0378; J0282; J0692; J0780; J1450; J1644; J1650; J1815; J2310; J2405; J2543; J2997; J3010; J3490; J7030; J7050; J7060

== ENCOUNTER 2023-07-03 15:01 | Inpatient (IN) | payer OTHER, MEDICAID ==
[~2023-07-03] VITALS: Ht 162.6 cm; Wt 113.9 kg
[~2023-07-03 15:01] MED LIST changes: -ACET1TAB93 PO; +ALPR0.25 PO; +APIX2.5T PO; +ASPI-1077 PO; -AUG875 PO; +BACL20TA PO; +CARV6.2554 PO; +CILO100T3 PO; +CLOP75TA32 PO; +DAPA10TA PO; +DULO60CA42 PO; +FURO-149 PO; +INSU100V SUBCUT; +INSU100V9 SUBCUT; +LEVO250T73 PO; +METO2.5T6 PO; +PERC10 PO; +POTA-197 PO; +PREG75CA PO; +PRO40 PO
[2023-07-03 15:10] VITALS: BP_SYST 125; PULSE 101; RESP 18; TEMP 98.2; O2SAT 100
[2023-07-03 15:46] LABS: BASOPHILS # (AUTO) 0.1 K/uL (0.0-0.2); BASOPHILS % (AUTO) 0.5 % (0.0-2.0); EOSINOPHILS # (AUTO) 0.2 K/uL (0.0-0.4); EOSINOPHILS % (AUTO) 1.2 % (0.0-4.0); HEMATOCRIT 32.5 % (36-48); HEMOGLOBIN 9.7 g/dL (12.0-16.0); LYMPHOCYTES # (AUTO) 2.4 K/uL (1.0-5.5); LYMPHOCYTES % (AUTO) 17.3 % (20.5-51.5); MEAN CORPUSCULAR HEMOGLOBIN 23 pg (27-31); MEAN CORPUSCULAR HGB CONC 30 % (32-36); MEAN CORPUSCULAR VOLUME 78 fL (79.0-98.0); MONOCYTES % (AUTO) 6.9 % (1.7-9.3); NEUTROPHILS # (AUTO) 10.2 K/uL (1.8-7.7); NEUTROPHILS % (AUTO) 74.1 % (40.0-70.0); PLATELET COUNT (AUTO) 291 K/uL (130-430); RED BLOOD CELL COUNT(AUTO) 4.19 MIL/uL (4.2-6.2); RED CELL DISTRIBUTION WIDTH 20.9 % (9.0-15.0); WHITE BLOOD COUNT (AUTO) 13.8 K/uL (4.8-10.8)
[2023-07-03 15:56] LABS: ANION GAP 7 (5-15); CALCIUM 8.5 mg/dL (8.4-11.0); CARBON DIOXIDE 32 mmol/L (23-29); CHLORIDE 98 mmol/L (98-107); CREATININE 1.42 mg/dL (0.55-1.30); GFR AFRICAN AMERICAN 49 mL/min (>90); GFR NON AFRICAN-AMERICAN 40 mL/min (>90); GLUCOSE 103 mg/dL (74-106); POTASSIUM 3.6 mmol/L (3.5-5.1); PROTHROMBIN TIME 10.3 SECS (9.5-12.5); SODIUM SERUM 137 mmol/L (136-145); UREA NITROGEN, BLOOD 45 mg/dL (8-21)
[2023-07-03 16:17] LABS: COVID19 ANTIGEN SOFIA FIA NEGATIVE (NEGATIVE)
[2023-07-03 16:19] LABS: INFLUENZA TYPE A negative (NEGATIVE); INFLUENZA TYPE B NEGATIVE (NEGATIVE)
[2023-07-03 16:36] LABS: ALBUMIN 2.7 g/dL (3.4-4.8); ASPARTATE AMINOTRANSFERASE 12 U/L (10-37); TOTAL BILIRUBIN 0.3 mg/dL (0.0-1.0); TOTAL PROTEIN, SERUM 7.9 g/dL (6.4-8.3)
[2023-07-03 17:21] LABS: ALANINE AMINOTRANSFERASE 2 U/L (12-78)
[2023-07-03 18:40] VITALS: BP_SYST 118; PULSE 82; RESP 18; TEMP 97.5; O2SAT 99
[2023-07-03 20:10] VITALS: BP_SYST 126; PULSE 83; RESP 18; TEMP 98.8; O2SAT 99
[2023-07-04] VITALS (11 sets, daily range): BP systolic 126–135; PULSE 70–98; RESP 18–20; TEMP 97.8–98.8; O2SAT 95–100
[2023-07-04] MEDS ORDERED: HYDR-3927 PO (00:10)
[2023-07-04] MEDS ORDERED: NALOXONE HCL 0.4 MG/ML AMP (NARCAN) IVP PRN ×3 (01:45→12:00)
[2023-07-04] MEDS ORDERED: HYDROcodone/ACETAMIN 5-325 MG TAB (NORCO/ VICODIN) PO PRN (01:45)
[2023-07-04] MEDS ORDERED: ALPRAZolam 0.25 MG TABLET PO ONE (01:45)
[2023-07-04] MEDS ORDERED: HYDROcodone/ACETAMIN 10-325 MG TAB PO PRN (01:45)
[2023-07-04] MEDS ORDERED: CEFEPIME 2 GM in D5W 100 ML IV SCH (04:15)
[2023-07-04 07:07] LABS: BASOPHILS # (AUTO) 0.1 K/uL (0.0-0.2); BASOPHILS % (AUTO) 0.6 % (0.0-2.0); EOSINOPHILS # (AUTO) 0.1 K/uL (0.0-0.4); EOSINOPHILS % (AUTO) 1.1 % (0.0-4.0); HEMATOCRIT 32.1 % (36-48); HEMOGLOBIN 9.5 g/dL (12.0-16.0); LYMPHOCYTES # (AUTO) 1.9 K/uL (1.0-5.5); LYMPHOCYTES % (AUTO) 17.6 % (20.5-51.5); MEAN CORPUSCULAR HEMOGLOBIN 23 pg (27-31); MEAN CORPUSCULAR HGB CONC 30 % (32-36); MEAN CORPUSCULAR VOLUME 78 fL (79.0-98.0); MONOCYTES # (AUTO) 0.9 K/uL (0.0-1.0); NEUTROPHILS # (AUTO) 7.8 K/uL (1.8-7.7); NEUTROPHILS % (AUTO) 72.7 % (40.0-70.0); PLATELET COUNT (AUTO) 296 K/uL (130-430); RED BLOOD CELL COUNT(AUTO) 4.11 MIL/uL (4.2-6.2); RED CELL DISTRIBUTION WIDTH 20.8 % (9.0-15.0); WHITE BLOOD COUNT (AUTO) 10.8 K/uL (4.8-10.8)
[2023-07-04 07:33] LABS: ALBUMIN 2.7 g/dL (3.4-4.8); CREATININE 1.14 mg/dL (0.55-1.30); POTASSIUM 3.5 mmol/L (3.5-5.1); TOTAL BILIRUBIN 0.4 mg/dL (0.0-1.0); TOTAL PROTEIN, SERUM 8.1 g/dL (6.4-8.3)
[2023-07-04 08:20] LABS: ANISOCYTOSIS 2+; HYPOCHROMASIA 1+
[2023-07-04] MEDS: CEFEPIME 1 GM in D5W 100 ML IV SCH (09:31)
[2023-07-04] MEDS: DOXYCYCLINE HYCLATE 100 MG CAPSULE PO SCH ×2 (09:31→21:52)
[2023-07-04] MEDS ORDERED: ALPRAZolam 0.25 MG TABLET PO PRN (10:00)
[2023-07-04] MEDS ORDERED: NON-FORMULARY MEDICATION (Dapagliflozin Propanediol (Farxiga) 10 MG) PO SCH (10:00)
[2023-07-04] MEDS ORDERED: BACLOFEN 10 MG TABLET PO PRN (10:00)
[2023-07-04] MEDS ORDERED: LORazepam 2 MG/ML VIAL IVP PRN (10:15)
[2023-07-04] MEDS ORDERED: D5W 1,000 ML IV PRN (10:15)
[2023-07-04] MEDS ORDERED: ACETAMINOPHEN 325 MG TABLET PO PRN ×2 (10:15→10:45)
[2023-07-04] MEDS ORDERED: ONDANSETRON HCL 4 MG/2 ML VIAL IVP PRN (10:15)
[2023-07-04] MEDS ORDERED: GLUCOSE (DEXTROSE) ORAL GEL -Adults PO PRN (10:15)
[2023-07-04] MEDS ORDERED: CLOPIDOGREL BISULFATE 75 MG TABLET PO ONE (10:45)
[2023-07-04] MEDS ORDERED: ASPIRIN 81 MG TAB.CHEW PO ONE (10:45)
[2023-07-04] MEDS ORDERED: PANTOPRAZOLE SODIUM 40 MG TAB PO ONE (11:00)
[2023-07-04] MEDS ORDERED: MORPHINE 2 MG/ML INJ. SYRINGE IVP PRN (12:00)
[2023-07-04] MEDS: ALBUTEROL SULFATE 0.083% 2.5 MG/3 ML VIAL.NEB INH PRN ×2 (12:22→23:30)
[2023-07-04] MEDS: INSULIN Lispro 100 UNITS/ML, 3 ML VIAL (humaLOG) SUBCUT SCH ×2 (12:51→17:00)
[2023-07-04] MEDS ORDERED: FUROSEMIDE 40 MG/4 ML VIAL IVP ONE (16:45)
[2023-07-04] MEDS: EMPAGLIFLOZIN 10 MG TABLET PO SCH (18:18)
[2023-07-04] MEDS: NORMAL SALINE 5 ML DISP.SYRIN IVF SCH ×2 (18:25→22:03)
[2023-07-04] MEDS: HYDROcodone/ACETAMIN 10-325 MG TAB PO PRN (19:13)
[2023-07-04] MEDS ORDERED: CARVEDILOL 6.25 MG TABLET (COREG) PO SCH (21:00)
[2023-07-04] MEDS: SACUBITRIL/VALSARTAN 24 MG-26 MG 1 TABLET PO SCH (21:00)
[2023-07-04] MEDS ORDERED: CILOSTAZOL 50 MG TABLET (PLETAL) PO SCH (21:00)
[2023-07-04] MEDS ORDERED: APIXABAN 2.5 MG TABLET PO SCH (21:00)
[2023-07-04] MEDS ORDERED: FUROSEMIDE 40 MG/4 ML VIAL IVP SCH (21:00)
[2023-07-04] MEDS: INSULIN GLARGINE 100 UNITS/ML, 10 ML VIAL SUBCUT SCH (21:00)
[2023-07-04] MEDS: DULoxetine HCL 30 MG CAPSULE.DR (CYMBALTA) PO SCH (21:52)
[2023-07-04] MEDS: POTASSIUM CHLORIDE 20 MEQ TAB.PRT.SR PO SCH (21:52)
[2023-07-04] MEDS: PREGABALIN 75 MG CAPSULE (LYRICA) PO SCH (21:52)
[2023-07-04] MEDS: APIXABAN 2.5 MG TABLET PO SCH (21:53)
[2023-07-04] MEDS: FUROSEMIDE 40 MG/4 ML VIAL IVP SCH (22:02)
[2023-07-04] MEDS: OXYCODONE/ACETAMINOPHEN *10*mg/325 mg TABLET PO PRN (23:47)
[2023-07-05 00:21] VITALS: BP_SYST 136; PULSE 84; RESP 17; TEMP 98; O2SAT 100
[2023-07-05 04:48] LABS: BASOPHILS % (AUTO) 0.6 % (0.0-2.0); EOSINOPHILS # (AUTO) 0.1 K/uL (0.0-0.4); EOSINOPHILS % (AUTO) 1.9 % (0.0-4.0); HEMATOCRIT 30.7 % (36-48); HEMOGLOBIN 9.3 g/dL (12.0-16.0); LYMPHOCYTES # (AUTO) 1.4 K/uL (1.0-5.5); LYMPHOCYTES % (AUTO) 19.9 % (20.5-51.5); MEAN CORPUSCULAR HEMOGLOBIN 23 pg (27-31); MEAN CORPUSCULAR HGB CONC 30 % (32-36); MEAN CORPUSCULAR VOLUME 76 fL (79.0-98.0); MONOCYTES # (AUTO) 0.6 K/uL (0.0-1.0); MONOCYTES % (AUTO) 7.8 % (1.7-9.3); NEUTROPHILS # (AUTO) 5.1 K/uL (1.8-7.7); NEUTROPHILS % (AUTO) 69.8 % (40.0-70.0); PLATELET COUNT (AUTO) 269 K/uL (130-430); RED BLOOD CELL COUNT(AUTO) 4.02 MIL/uL (4.2-6.2); RED CELL DISTRIBUTION WIDTH 21.2 % (9.0-15.0); WHITE BLOOD COUNT (AUTO) 7.2 K/uL (4.8-10.8)
[2023-07-05 05:01] LABS: CALCIUM 8.8 mg/dL (8.4-11.0); CREATININE 1.07 mg/dL (0.55-1.30); PHOSPHORUS 4.5 mg/dL (2.7-4.5); POTASSIUM 3.4 mmol/L (3.5-5.1)
[2023-07-05] MEDS: NORMAL SALINE 5 ML DISP.SYRIN IVF SCH ×3 (06:47→20:32)
[2023-07-05] MEDS: FUROSEMIDE 40 MG/4 ML VIAL IVP SCH ×3 (06:48→20:30)
[2023-07-05] MEDS: INSULIN Lispro 100 UNITS/ML, 3 ML VIAL (humaLOG) SUBCUT SCH ×3 (06:49→17:23)
[2023-07-05] MEDS ORDERED: METF-380 PO (07:56)
[2023-07-05] MEDS ORDERED: HYDR25TA4 PO (07:56)
[2023-07-05 08:02] VITALS: BP_SYST 122; PULSE 76; RESP 16; TEMP 98.4; O2SAT 93
[2023-07-05] MEDS: DULoxetine HCL 30 MG CAPSULE.DR (CYMBALTA) PO SCH ×2 (08:46→20:20)
[2023-07-05] MEDS: ASPIRIN 81 MG TAB.CHEW PO SCH (08:46)
[2023-07-05] MEDS: PANTOPRAZOLE SODIUM 40 MG TAB PO SCH (08:46)
[2023-07-05] MEDS: DOXYCYCLINE HYCLATE 100 MG CAPSULE PO SCH ×2 (08:46→20:20)
[2023-07-05] MEDS: POTASSIUM CHLORIDE 20 MEQ TAB.PRT.SR PO SCH ×2 (08:46→20:20)
[2023-07-05] MEDS: PREGABALIN 75 MG CAPSULE (LYRICA) PO SCH ×2 (08:46→20:20)
[2023-07-05] MEDS: ATORVASTATIN 20 MG TABLET PO SCH (08:46)
[2023-07-05] MEDS: APIXABAN 2.5 MG TABLET PO SCH ×2 (08:47→20:23)
[2023-07-05] MEDS: SACUBITRIL/VALSARTAN 24 MG-26 MG 1 TABLET PO SCH ×2 (08:49→20:32)
[2023-07-05] MEDS: EMPAGLIFLOZIN 10 MG TABLET PO SCH (08:50)
[2023-07-05] MEDS: INSULIN GLARGINE 100 UNITS/ML, 10 ML VIAL SUBCUT SCH ×2 (08:54→20:31)
[2023-07-05] MEDS: CEFEPIME 1 GM in D5W 100 ML IV SCH (08:56)
[2023-07-05] MEDS ORDERED: CLOPIDOGREL BISULFATE 75 MG TABLET PO SCH (09:00)
[2023-07-05 11:39] VITALS: BP_SYST 124; PULSE 74; RESP 18; TEMP 97.4; O2SAT 99
[2023-07-05 12:48] VITALS: O2SAT 93
[2023-07-05] MEDS: OXYCODONE/ACETAMINOPHEN *10*mg/325 mg TABLET PO PRN (14:55)
[2023-07-05 19:40] VITALS: BP_SYST 110; PULSE 63; RESP 18; TEMP 98.1; O2SAT 97
[2023-07-05 20:00] VITALS: O2SAT 97
[2023-07-05] MEDS: ALBUTEROL SULFATE 0.083% 2.5 MG/3 ML VIAL.NEB INH PRN (20:00)
[2023-07-05] MEDS: HYDROcodone/ACETAMIN 10-325 MG TAB PO PRN (20:21)
[2023-07-06] VITALS (8 sets, daily range): BP systolic 96–116; PULSE 68–79; RESP 16–19; TEMP 96.7–97.8; O2SAT 95–98
[2023-07-06 05:18] LABS: BASOPHILS % (AUTO) 0.6 % (0.0-2.0); EOSINOPHILS # (AUTO) 0.2 K/uL (0.0-0.4); HEMATOCRIT 31.3 % (36-48); HEMOGLOBIN 9.3 g/dL (12.0-16.0); LYMPHOCYTES # (AUTO) 1.5 K/uL (1.0-5.5); LYMPHOCYTES % (AUTO) 23.3 % (20.5-51.5); MEAN CORPUSCULAR HEMOGLOBIN 23 pg (27-31); MEAN CORPUSCULAR HGB CONC 30 % (32-36); MEAN CORPUSCULAR VOLUME 78 fL (79.0-98.0); MONOCYTES # (AUTO) 0.7 K/uL (0.0-1.0); MONOCYTES % (AUTO) 11.7 % (1.7-9.3); NEUTROPHILS # (AUTO) 3.8 K/uL (1.8-7.7); NEUTROPHILS % (AUTO) 61.4 % (40.0-70.0); PLATELET COUNT (AUTO) 258 K/uL (130-430); RED BLOOD CELL COUNT(AUTO) 4.01 MIL/uL (4.2-6.2); RED CELL DISTRIBUTION WIDTH 20.8 % (9.0-15.0); WHITE BLOOD COUNT (AUTO) 6.2 K/uL (4.8-10.8)
[2023-07-06 05:24] LABS: ALBUMIN 2.7 g/dL (3.4-4.8); CALCIUM 8.5 mg/dL (8.4-11.0); CREATININE 1.61 mg/dL (0.55-1.30); PHOSPHORUS 5.9 mg/dL (2.7-4.5); POTASSIUM 4.3 mmol/L (3.5-5.1); TOTAL BILIRUBIN 0.5 mg/dL (0.0-1.0); TOTAL PROTEIN, SERUM 8.1 g/dL (6.4-8.3)
[2023-07-06] MEDS: NORMAL SALINE 5 ML DISP.SYRIN IVF SCH ×2 (05:53→14:02)
[2023-07-06] MEDS: FUROSEMIDE 40 MG/4 ML VIAL IVP SCH (05:55)
[2023-07-06] MEDS: INSULIN Lispro 100 UNITS/ML, 3 ML VIAL (humaLOG) SUBCUT SCH ×3 (06:00→17:54)
[2023-07-06] MEDS: INSULIN REGULAR, HUMAN 100 UNITS/ML, 3 ML VIAL (humuLIN R) SUBCUT PRN ×2 (06:01→17:53)
[2023-07-06] MEDS: HYDROcodone/ACETAMIN 10-325 MG TAB PO PRN ×3 (06:10→20:38)
[2023-07-06 06:27] LABS: ERYTHROCYTE SEDIMENTATION RATE > 130 MM/HR (0-20)
[2023-07-06] MEDS: PREGABALIN 75 MG CAPSULE (LYRICA) PO SCH ×2 (08:16→20:38)
[2023-07-06] MEDS: PANTOPRAZOLE SODIUM 40 MG TAB PO SCH (08:16)
[2023-07-06] MEDS: DOXYCYCLINE HYCLATE 100 MG CAPSULE PO SCH ×2 (08:16→20:39)
[2023-07-06] MEDS: POTASSIUM CHLORIDE 20 MEQ TAB.PRT.SR PO SCH ×2 (08:16→20:38)
[2023-07-06] MEDS: ASPIRIN 81 MG TAB.CHEW PO SCH (08:18)
[2023-07-06] MEDS: EMPAGLIFLOZIN 10 MG TABLET PO SCH (08:18)
[2023-07-06] MEDS: DULoxetine HCL 30 MG CAPSULE.DR (CYMBALTA) PO SCH ×2 (08:18→20:38)
[2023-07-06] MEDS: SACUBITRIL/VALSARTAN 24 MG-26 MG 1 TABLET PO SCH ×2 (08:19→20:42)
[2023-07-06] MEDS: APIXABAN 2.5 MG TABLET PO SCH ×2 (08:21→20:40)
[2023-07-06] MEDS: INSULIN GLARGINE 100 UNITS/ML, 10 ML VIAL SUBCUT SCH ×2 (08:22→20:41)
[2023-07-06] MEDS: ATORVASTATIN 20 MG TABLET PO SCH (08:23)
[2023-07-06] MEDS: CEFEPIME 1 GM in D5W 100 ML IV SCH (08:24)
[2023-07-06] MEDS ORDERED: metOLazone 2.5 MG TABLET PO SCH (09:00)
[2023-07-06] MEDS ORDERED: DOCUSATE SODIUM 100 MG CAPSULE PO ONE (12:00)
[2023-07-06] MEDS: DOCUSATE SODIUM 100 MG CAPSULE PO SCH (20:39)
[2023-07-07] VITALS (7 sets, daily range): BP systolic 88–123; PULSE 61–86; RESP 17–18; TEMP 96.5–98.4; O2SAT 95–100
[2023-07-07] MEDS: NORMAL SALINE 5 ML DISP.SYRIN IVF SCH ×4 (02:27→21:28)
[2023-07-07] MEDS: HYDROcodone/ACETAMIN 10-325 MG TAB PO PRN ×4 (04:07→10:40)
[2023-07-07 05:16] LABS: BASOPHILS # (AUTO) 0.1 K/uL (0.0-0.2); BASOPHILS % (AUTO) 0.9 % (0.0-2.0); EOSINOPHILS # (AUTO) 0.2 K/uL (0.0-0.4); EOSINOPHILS % (AUTO) 2.6 % (0.0-4.0); HEMATOCRIT 29.6 % (36-48); HEMOGLOBIN 8.7 g/dL (12.0-16.0); LYMPHOCYTES # (AUTO) 2.2 K/uL (1.0-5.5); LYMPHOCYTES % (AUTO) 29.9 % (20.5-51.5); MEAN CORPUSCULAR HEMOGLOBIN 23 pg (27-31); MEAN CORPUSCULAR HGB CONC 30 % (32-36); MEAN CORPUSCULAR VOLUME 79 fL (79.0-98.0); MONOCYTES # (AUTO) 0.6 K/uL (0.0-1.0); MONOCYTES % (AUTO) 8.2 % (1.7-9.3); NEUTROPHILS # (AUTO) 4.3 K/uL (1.8-7.7); NEUTROPHILS % (AUTO) 58.4 % (40.0-70.0); PLATELET COUNT (AUTO) 264 K/uL (130-430); RED BLOOD CELL COUNT(AUTO) 3.74 MIL/uL (4.2-6.2); RED CELL DISTRIBUTION WIDTH 20.9 % (9.0-15.0); WHITE BLOOD COUNT (AUTO) 7.3 K/uL (4.8-10.8)
[2023-07-07 05:40] LABS: CALCIUM 8.2 mg/dL (8.4-11.0); CREATININE 2.58 mg/dL (0.55-1.30); POTASSIUM 4.4 mmol/L (3.5-5.1)
[2023-07-07 05:47] LABS: ERYTHROCYTE SEDIMENTATION RATE 109 MM/HR (0-20)
[2023-07-07] MEDS: INSULIN Lispro 100 UNITS/ML, 3 ML VIAL (humaLOG) SUBCUT SCH ×3 (07:12→17:00)
[2023-07-07] MEDS: SACUBITRIL/VALSARTAN 24 MG-26 MG 1 TABLET PO SCH ×2 (08:40→21:22)
[2023-07-07] MEDS: ATORVASTATIN 20 MG TABLET PO SCH (08:40)
[2023-07-07] MEDS: PANTOPRAZOLE SODIUM 40 MG TAB PO SCH (08:40)
[2023-07-07] MEDS: POTASSIUM CHLORIDE 20 MEQ TAB.PRT.SR PO SCH ×2 (08:40→21:18)
[2023-07-07] MEDS: ASPIRIN 81 MG TAB.CHEW PO SCH (08:41)
[2023-07-07] MEDS: EMPAGLIFLOZIN 10 MG TABLET PO SCH (08:41)
[2023-07-07] MEDS: DOXYCYCLINE HYCLATE 100 MG CAPSULE PO SCH ×2 (08:41→21:19)
[2023-07-07] MEDS: DOCUSATE SODIUM 100 MG CAPSULE PO SCH ×2 (08:41→21:15)
[2023-07-07] MEDS: DULoxetine HCL 30 MG CAPSULE.DR (CYMBALTA) PO SCH ×2 (08:41→21:16)
[2023-07-07] MEDS: APIXABAN 2.5 MG TABLET PO SCH ×2 (08:45→21:22)
[2023-07-07] MEDS: PREGABALIN 75 MG CAPSULE (LYRICA) PO SCH ×2 (08:46→21:18)
[2023-07-07] MEDS: INSULIN GLARGINE 100 UNITS/ML, 10 ML VIAL SUBCUT SCH ×2 (08:51→21:00)
[2023-07-07] MEDS: CEFEPIME 1 GM in D5W 100 ML IV SCH (09:41)
[2023-07-07] MEDS: NACL 0.9% 1,000 ML IV SCH (18:19)
[2023-07-08] VITALS (7 sets, daily range): BP systolic 107–122; PULSE 62–76; RESP 16–20; TEMP 97.6–98.7; O2SAT 95–100
[2023-07-08] MEDS: NACL 0.9% 1,000 ML IV SCH ×2 (06:14→15:18)
[2023-07-08] MEDS: NORMAL SALINE 5 ML DISP.SYRIN IVF SCH ×3 (06:15→21:00)
[2023-07-08] MEDS: INSULIN Lispro 100 UNITS/ML, 3 ML VIAL (humaLOG) SUBCUT SCH ×3 (06:24→16:17)
[2023-07-08 07:50] LABS: BASOPHILS % (AUTO) 0.6 % (0.0-2.0); EOSINOPHILS # (AUTO) 0.2 K/uL (0.0-0.4); HEMATOCRIT 32.2 % (36-48); HEMOGLOBIN 9.5 g/dL (12.0-16.0); LYMPHOCYTES # (AUTO) 1.4 K/uL (1.0-5.5); LYMPHOCYTES % (AUTO) 23.5 % (20.5-51.5); MEAN CORPUSCULAR HEMOGLOBIN 23 pg (27-31); MEAN CORPUSCULAR HGB CONC 30 % (32-36); MEAN CORPUSCULAR VOLUME 79 fL (79.0-98.0); MONOCYTES # (AUTO) 0.4 K/uL (0.0-1.0); MONOCYTES % (AUTO) 7.5 % (1.7-9.3); NEUTROPHILS # (AUTO) 3.9 K/uL (1.8-7.7); NEUTROPHILS % (AUTO) 65.4 % (40.0-70.0); PLATELET COUNT (AUTO) 241 K/uL (130-430); RED BLOOD CELL COUNT(AUTO) 4.08 MIL/uL (4.2-6.2); RED CELL DISTRIBUTION WIDTH 20.8 % (9.0-15.0)
[2023-07-08 08:12] LABS: ERYTHROCYTE SEDIMENTATION RATE > 130 MM/HR (0-20)
[2023-07-08 08:15] LABS: ALBUMIN 2.7 g/dL (3.4-4.8); CALCIUM 8.2 mg/dL (8.4-11.0); CREATININE 2.34 mg/dL (0.55-1.30); PHOSPHORUS 6.8 mg/dL (2.7-4.5); POTASSIUM 4.7 mmol/L (3.5-5.1); TOTAL BILIRUBIN 0.4 mg/dL (0.0-1.0); TOTAL PROTEIN, SERUM 7.8 g/dL (6.4-8.3)
[2023-07-08] MEDS: INSULIN GLARGINE 100 UNITS/ML, 10 ML VIAL SUBCUT SCH ×2 (09:00→21:00)
[2023-07-08] MEDS: POTASSIUM CHLORIDE 20 MEQ TAB.PRT.SR PO SCH ×2 (09:06→20:59)
[2023-07-08] MEDS: DULoxetine HCL 30 MG CAPSULE.DR (CYMBALTA) PO SCH ×2 (09:06→20:58)
[2023-07-08] MEDS: ASPIRIN 81 MG TAB.CHEW PO SCH (09:06)
[2023-07-08] MEDS: PREGABALIN 75 MG CAPSULE (LYRICA) PO SCH ×2 (09:06→20:58)
[2023-07-08] MEDS: DOXYCYCLINE HYCLATE 100 MG CAPSULE PO SCH (09:06)
[2023-07-08] MEDS: DOCUSATE SODIUM 100 MG CAPSULE PO SCH ×2 (09:06→20:58)
[2023-07-08] MEDS: PANTOPRAZOLE SODIUM 40 MG TAB PO SCH (09:07)
[2023-07-08] MEDS: ATORVASTATIN 20 MG TABLET PO SCH (09:07)
[2023-07-08] MEDS: SACUBITRIL/VALSARTAN 24 MG-26 MG 1 TABLET PO SCH ×2 (09:09→20:59)
[2023-07-08] MEDS: EMPAGLIFLOZIN 10 MG TABLET PO SCH (09:10)
[2023-07-08] MEDS: APIXABAN 2.5 MG TABLET PO SCH ×2 (09:11→21:00)
[2023-07-08] MEDS: CEFEPIME 1 GM in D5W 100 ML IV SCH (09:37)
[2023-07-08] MEDS: levoFLOXacin 250 MG TABLET PO SCH (20:58)
[2023-07-09 00:20] VITALS: BP_SYST 121; PULSE 81; RESP 20; TEMP 97.5; O2SAT 98
[2023-07-09 05:00] LABS: BASOPHILS % (AUTO) 0.6 % (0.0-2.0); EOSINOPHILS # (AUTO) 0.2 K/uL (0.0-0.4); EOSINOPHILS % (AUTO) 2.3 % (0.0-4.0); HEMATOCRIT 30.2 % (36-48); HEMOGLOBIN 8.8 g/dL (12.0-16.0); LYMPHOCYTES # (AUTO) 1.5 K/uL (1.0-5.5); LYMPHOCYTES % (AUTO) 20.9 % (20.5-51.5); MEAN CORPUSCULAR HEMOGLOBIN 23 pg (27-31); MEAN CORPUSCULAR HGB CONC 29 % (32-36); MEAN CORPUSCULAR VOLUME 79 fL (79.0-98.0); MONOCYTES # (AUTO) 0.7 K/uL (0.0-1.0); MONOCYTES % (AUTO) 9.8 % (1.7-9.3); NEUTROPHILS # (AUTO) 4.7 K/uL (1.8-7.7); NEUTROPHILS % (AUTO) 66.4 % (40.0-70.0); PLATELET COUNT (AUTO) 241 K/uL (130-430); RED BLOOD CELL COUNT(AUTO) 3.81 MIL/uL (4.2-6.2); RED CELL DISTRIBUTION WIDTH 20.6 % (9.0-15.0); WHITE BLOOD COUNT (AUTO) 7.1 K/uL (4.8-10.8)
[2023-07-09 05:03] LABS: ERYTHROCYTE SEDIMENTATION RATE 118 MM/HR (0-20)
[2023-07-09 05:20] LABS: CALCIUM 8.3 mg/dL (8.4-11.0); CREATININE 1.38 mg/dL (0.55-1.30); PHOSPHORUS 4.1 mg/dL (2.7-4.5); POTASSIUM 4.2 mmol/L (3.5-5.1)
[2023-07-09] MEDS: NORMAL SALINE 5 ML DISP.SYRIN IVF SCH ×2 (06:15→14:46)
[2023-07-09] MEDS: INSULIN Lispro 100 UNITS/ML, 3 ML VIAL (humaLOG) SUBCUT SCH ×3 (06:16→17:00)
[2023-07-09] MEDS: NACL 0.9% 1,000 ML IV SCH ×3 (06:17→21:16)
[2023-07-09 08:00] VITALS: BP_SYST 118; PULSE 77; RESP 20; TEMP 98.9; O2SAT 94
[2023-07-09] MEDS: ASPIRIN 81 MG TAB.CHEW PO SCH (08:40)
[2023-07-09] MEDS: POTASSIUM CHLORIDE 20 MEQ TAB.PRT.SR PO SCH ×2 (08:40→21:10)
[2023-07-09] MEDS: APIXABAN 2.5 MG TABLET PO SCH ×2 (08:41→21:15)
[2023-07-09] MEDS: DULoxetine HCL 30 MG CAPSULE.DR (CYMBALTA) PO SCH ×2 (08:43→21:10)
[2023-07-09] MEDS: PREGABALIN 75 MG CAPSULE (LYRICA) PO SCH ×2 (08:43→21:11)
[2023-07-09] MEDS: ATORVASTATIN 20 MG TABLET PO SCH (08:44)
[2023-07-09] MEDS: DOCUSATE SODIUM 100 MG CAPSULE PO SCH ×2 (08:44→21:10)
[2023-07-09] MEDS: PANTOPRAZOLE SODIUM 40 MG TAB PO SCH (10:16)
[2023-07-09] MEDS: INSULIN GLARGINE 100 UNITS/ML, 10 ML VIAL SUBCUT SCH ×2 (10:43→21:00)
[2023-07-09] MEDS: SACUBITRIL/VALSARTAN 24 MG-26 MG 1 TABLET PO SCH ×2 (10:52→21:11)
[2023-07-09] MEDS: EMPAGLIFLOZIN 10 MG TABLET PO SCH (10:52)
[2023-07-09] MEDS ORDERED: SACU1TAB PO (11:03)
[2023-07-09] MEDS ORDERED: LEVO250T73 PO (11:03)
[2023-07-09 12:00] VITALS: BP_SYST 119; PULSE 79; RESP 19; TEMP 98.1; O2SAT 97
[2023-07-09 13:23] VITALS: O2SAT 93
[2023-07-09] MEDS: ALBUTEROL SULFATE 0.083% 2.5 MG/3 ML VIAL.NEB INH PRN (13:23)
[2023-07-09 16:30] VITALS: BP_SYST 117; PULSE 75; RESP 20; TEMP 98.4; O2SAT 95
[2023-07-09 18:11] LABS: ABG O2 SAT% ESTIMATE 92.3 % (94.0-100.0); BLOOD GAS BASE EXCESS -1.9 mmol/L (-3.0-3.0); BLOOD GAS HCO3 23.5 mmol/L (21.0-27.0); BLOOD GAS PCO2 42.4 mmHg (35.0-45.0); BLOOD GAS PH 7.361 (7.350-7.450); BLOOD GAS PO2 65.9 mmHg (75.0-100.0)
[2023-07-09 18:14] LABS: ALLEN'S TEST POSITIVE (P)
[2023-07-09 20:00] VITALS: BP_SYST 129; PULSE 84; RESP 19; TEMP 97.3; O2SAT 97
[2023-07-09] MEDS: levoFLOXacin 250 MG TABLET PO SCH (21:10)
[2023-07-10] VITALS (7 sets, daily range): BP systolic 120–140; PULSE 50–97; RESP 16–22; TEMP 97.1–98.9; O2SAT 94–97
[2023-07-10] MEDS: NORMAL SALINE 5 ML DISP.SYRIN IVF SCH ×3 (06:21→14:01)
[2023-07-10] MEDS: NACL 0.9% 1,000 ML IV SCH ×2 (06:25→15:15)
[2023-07-10] MEDS: INSULIN Lispro 100 UNITS/ML, 3 ML VIAL (humaLOG) SUBCUT SCH ×3 (07:00→17:00)
[2023-07-10] MEDS: ALBUTEROL SULFATE 0.083% 2.5 MG/3 ML VIAL.NEB INH PRN (07:01)
[2023-07-10 07:17] LABS: BASOPHILS % (AUTO) 0.6 % (0.0-2.0); EOSINOPHILS # (AUTO) 0.1 K/uL (0.0-0.4); EOSINOPHILS % (AUTO) 1.2 % (0.0-4.0); HEMATOCRIT 34.2 % (36-48); HEMOGLOBIN 9.9 g/dL (12.0-16.0); LYMPHOCYTES # (AUTO) 1.3 K/uL (1.0-5.5); LYMPHOCYTES % (AUTO) 16.9 % (20.5-51.5); MEAN CORPUSCULAR HEMOGLOBIN 23 pg (27-31); MEAN CORPUSCULAR HGB CONC 29 % (32-36); MEAN CORPUSCULAR VOLUME 80 fL (79.0-98.0); MONOCYTES # (AUTO) 0.5 K/uL (0.0-1.0); MONOCYTES % (AUTO) 6.4 % (1.7-9.3); NEUTROPHILS # (AUTO) 5.8 K/uL (1.8-7.7); NEUTROPHILS % (AUTO) 74.9 % (40.0-70.0); PLATELET COUNT (AUTO) 246 K/uL (130-430); RED BLOOD CELL COUNT(AUTO) 4.28 MIL/uL (4.2-6.2); RED CELL DISTRIBUTION WIDTH 20.9 % (9.0-15.0); WHITE BLOOD COUNT (AUTO) 7.7 K/uL (4.8-10.8)
[2023-07-10 07:25] LABS: CREATININE 1.06 mg/dL (0.55-1.30); PHOSPHORUS 3.1 mg/dL (2.7-4.5); POTASSIUM 4.4 mmol/L (3.5-5.1)
[2023-07-10 07:37] LABS: ERYTHROCYTE SEDIMENTATION RATE 124 MM/HR (0-20)
[2023-07-10] MEDS: INSULIN GLARGINE 100 UNITS/ML, 10 ML VIAL SUBCUT SCH (09:00)
[2023-07-10] MEDS: ATORVASTATIN 20 MG TABLET PO SCH (09:02)
[2023-07-10] MEDS: POTASSIUM CHLORIDE 20 MEQ TAB.PRT.SR PO SCH (09:02)
[2023-07-10] MEDS: ASPIRIN 81 MG TAB.CHEW PO SCH (09:02)
[2023-07-10] MEDS: DOCUSATE SODIUM 100 MG CAPSULE PO SCH (09:03)
[2023-07-10] MEDS: APIXABAN 2.5 MG TABLET PO SCH (09:03)
[2023-07-10] MEDS: PANTOPRAZOLE SODIUM 40 MG TAB PO SCH (09:03)
[2023-07-10] MEDS: DULoxetine HCL 30 MG CAPSULE.DR (CYMBALTA) PO SCH (09:04)
[2023-07-10] MEDS: PREGABALIN 75 MG CAPSULE (LYRICA) PO SCH (09:04)
[2023-07-10] MEDS: SACUBITRIL/VALSARTAN 24 MG-26 MG 1 TABLET PO SCH (09:18)
[2023-07-10] MEDS: EMPAGLIFLOZIN 10 MG TABLET PO SCH (09:19)
== END 2023-07-10 18:20 | disposition home health service (06) | DRG 871 ==
LOC: SED 15:01 → STU 17:53 → SMU 07-07 09:09
PROVIDERS: ADMIT Preventive Medicine Preventive Medicine/Occupational Environmental Medicine; ATTEND Preventive Medicine Preventive Medicine/Occupational Environmental Medicine
PROC: 05HY33Z Insertion of Infusion Device into Upper Vein, Percutaneous Approach (ICD-10-PCS; principal; 2023-07-04)
PROC: B54NZZA Ultrasonography of Left Upper Extremity Veins, Guidance (ICD-10-PCS; 2023-07-04)
DX: A41.9 Sepsis, unspecified organism (principal); I50.23 Acute on chronic systolic (congestive) heart failure; J18.9 Pneumonia, unspecified organism; J96.01 Acute respiratory failure with hypoxia; E87.1 Hypo-osmolality and hyponatremia; N17.9 Acute kidney failure, unspecified; J44.0 Chronic obstructive pulmonary disease with (acute) lower respiratory infection; J44.1 Chronic obstructive pulmonary disease with (acute) exacerbation; I13.0 Hypertensive heart and chronic kidney disease with heart failure and stage 1 through stage 4 chronic kidney disease, or unspecified chronic kidney disease; Z68.41 Body mass index [BMI] 40.0-44.9, adult; G45.9 Transient cerebral ischemic attack, unspecified; E83.41 Hypermagnesemia; E83.39 Other disorders of phosphorus metabolism; I25.10 Atherosclerotic heart disease of native coronary artery without angina pectoris; E88.09 Other disorders of plasma-protein metabolism, not elsewhere classified; E11.65 Type 2 diabetes mellitus with hyperglycemia; E11.51 Type 2 diabetes mellitus with diabetic peripheral angiopathy without gangrene; I25.5 Ischemic cardiomyopathy; N18.9 Chronic kidney disease, unspecified; E11.22 Type 2 diabetes mellitus with diabetic chronic kidney disease; E66.9 Obesity, unspecified; R53.81 Other malaise; Z20.822 Contact with and (suspected) exposure to COVID-19; E83.51 Hypocalcemia; D64.9 Anemia, unspecified; Z88.8 Allergy status to other drugs, medicaments and biological substances; Z79.899 Other long term (current) drug therapy; Z79.891 Long term (current) use of opiate analgesic; Z79.01 Long term (current) use of anticoagulants; Z95.1 Presence of aortocoronary bypass graft; Z79.4 Long term (current) use of insulin
CPT/HCPCS: 36415; 36600; 70450-TC; 70551; 71045; 71250-TC; 76376; 76770; 80048; 80053; 82803; 82962; 83605; 83735; 83880; 84100; 84484; 85025; 85610-TC; 85651-TC; 85730-TC; 87040; 93005; 94640; 94760; 97110-GP; 97163-GP; 97530-GP; 99285; C1751; G0378; J0692; J1120; J1815; J1940; J2270; J7030; J7060